=== PATIENT | male | born 1995 | race Caucasian/White ===

== ENCOUNTER 2018-11-18 13:16 | Emergency (ER) | payer OTHER, SELFPAY ==
[2018-11-18 13:18] VITALS: BP 159/71; PULSE 89; RESP 16; TEMP 36.7; O2SAT 98; BMI 35.2
--- NOTE | 2018-11-18 14:17 | ED.VISSUMM ---
- ER Visit Summary Date of Service: 11/18/18 Chief Complaint: [Sore throat] History of Present Illness: The patient is a 23 M [ presents to the emergency department with complaint of a sore throat that started last evening. Patient had subjective fever last night and chills. Patient denies any cough. Patient denies nausea, vomiting, or diarrhea. He denies any sick contacts.] Physical Examination: [HEENT-PERRLA, EOMI. Cranial nerves II through XII grossly intact. TMs clear. Mucous membranes moist. No adenopathy. Patient has oral pharyngeal erythema as well as some tonsillar erythema. No exudates noted. Uvula midline. No trismus. No anterior or posterior cervical lymphadenopathy noted. Cardiovascular-regular rate and rhythm without murmur or ectopy Lungs-clear to auscultation, chest wall stable without crepitus or subcu emphysema Abdomen-normoactive bowel sounds, soft, nontender, no rebound or rigidity, no peritoneal signs. Extremities-intact ?4, normal range of motion, normal pulses, atraumatic] Test Results: [Rapid strep screen performed was positive] Emergency Department Course and Treatment: [Patient was started on amoxicillin] Treatment Plan: [She will be treated with amoxicillin] Disposition: [Discharged home in stable condition] Impression: [Strep pharyngitis] This note was generated with [employer] dictation software. It may contain incorrect words, spelling, and punctuation that were not noted in review of the chart prior to signing ED Disposition - Plan for ED Patient: Chief Complaint: Sore Throat Referrals: Care Physician,No Primary [Primary Care Provider] -
--- NOTE | 2018-11-18 14:17 | ED.RN ---
POSITIVE STREP. DR. HURTADO AWARE
--- NOTE | 2018-11-18 14:18 | ED.DEP ---
ED Disposition - Plan for ED Patient: Chief Complaint: Sore Throat Instructions: ED Strep Pharyngitis Conf Prescriptions: Amoxicillin 500 mg PO TID #30 tab Referrals: Care Physician,No Primary [Primary Care Provider] - 5-7 Days
[2018-11-18] MEDS: AMOXICILLIN 500 MG CAPSULE PO (14:43)
== END 2018-11-18 14:45 | disposition home or self-care (01) ==
PROVIDERS: Emergency Provider Emergency Medicine
DX: J02.0 Streptococcal pharyngitis (principal)
CPT/HCPCS: 87077; 87880; 99283